=== PATIENT | female | born 2005 | race Caucasian/White ===

== ENCOUNTER 2025-07-02 10:48 | Outpatient (AMB) | payer BC, SELFPAY ==
[2025-07-02 11:11] VITALS: BP 128/80; PULSE 64; RESP 14; TEMP 36.4; O2SAT 98; BMI 23.8
--- NOTE | 2025-07-02 11:11 | OBCLNT_ITS ---
Vital Signs 07/02/25 11:11 Height 1.7 m Height Method Stated Weight 69.116 kg Weight Measurement Method Standing Scale BMI 23.8 BP 128/80 Blood Pressure Source Automatic Cuff Blood Pressure Location Left Upper Arm Position Sitting Respiration 14 Pulse 64 Pulse Source Monitor Temp 97.6 F Temp Source Oral Pulse Oximetry (%) 98 Oxygen Delivery Method Room Air Allergies/Home Meds Allergies & Medications Allergies No Known Allergies Allergy (Verified 07/02/25 11:12) Medication Reconciliation No Known Home Medications 07/02/25 [History Confirmed 07/02/25] Intake Visit Data Collection New Patient or Established: Established Patient (seen at [facility] within 3 years) Reason for Visit:: INITIAL CARE Seen by Clinical Staff ONLY (RN/MA): No Information Technology Security Manager Required: No Do You Feel Safe at Home: Yes Authorities Contacted: N/A PCP or OBGYN visit in last 3 months: Yes Hx Now: Yes Are you currently on any form of Control: No Last menstrual period: 04/19/25 Pain Present Currently: No Pain Scale Used: French-Stroud/Numerical Pain scale:: 0 Smoking Status Smoking Status: Never smoker Questionnaires Covid-19 Vaccine Questionnaire Has patient been vacinated for Covid-19 Have you been vacinated for Covid-19: No PHQ-9 PHQ-2 Over the last 2 weeks, how often have you been bothered by any of the following problems? 1. Little interest or pleasure in doing things: not at all 2. Feeling down, depressed, or hopeless: not at all Total score: 0 PHQ-9 3. Trouble falling or staying asleep, or sleeping too much: Not at all 4. Feeling tired or having little energy: Not at all 5. Poor appetite or overeating: Not at all 6. Feeling bad about yourself - or that you are a failure or have let yourself or your family down: Not at all 7. Trouble concentrating on things, such as reading the newspaper or watching television: Not at all 8. Moving or speaking so slowly that other people could have noticed? - Or the opposite - being so fidgety or restless that you have been moving around a lot more than usual: not at all 9. Thoughts that you would be better off or of hurting yourself in some way: Not at all Total score: 0 Source: Developed by Drs. Filiberto Betancourt, Codi Cruz, Barry Smith and colleagues, with an educational sangeetha from [employer]. Depression screen completed yes Social History Living Situation History Marital Status: Life Partner Lives With: Family Housing: House Tobacco History Smoking Status: Never smoker Second Hand Smoke Exposure: No Alcohol History Alcohol Intake: Never Domestic Abuse History Do You Feel Safe at Home: Yes History of Present Illness HPI Narrative Verónica Butler presents for care at 12 weeks and 6 days gestation. Her last menstrual period was on April 19, with an estimated due date of January 08, 2026. The patient reports experiencing morning nausea, which is being managed with Zofran. Her diabetes is currently controlled using an insulin pump. Verónica has already received some initial care at [facility], where a heartbeat check and limited blood panel were performed. Today's ultrasound confirms a normal heartbeat of 143 bpm, with measurements consistent with her gestational age of 12 weeks and 6 days. She is a 19-year-old female with an obstetric history of A0 L0. The patient has been taking insulin administered via insulin pump for diabetes. She is also taking Zofran for morning nausea. 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 OB Initial Visit OB Flowsheet OB Flowsheet Initial Weight: Not Recorded Date -?-?-?-?-?-?-?-?-?-?-?-?- EGA Weight BP Alb Glu CTX Pres Fundal ht FHR Mov Dilation Station Effacement Hx Notes Visit Note 07/02/25 -?-?-?-?-?-?-?-?-?-?-?-?- 12w 6d 69.116 kg 128/80 Verónica Butler presents for care at 12 weeks and 6 days gestation. Her last menstrual period was on April 19, with an estimated due date of January 08, 2026. The patient reports experiencing morning nausea, which is being managed with Zofran. Her diabetes is currently controlled using an insulin pump. Verónica has already received some initial care at [facility], where a heartbeat check and limited blood panel were performed. Plan: - Complete panel including A1c and genetic screening. - Patient to fast for 8 hours before blo od draw. - Follow-up in 4 weeks. - Schedule high-level ultrasound in [facility]. - Prescriptions will be sent to [facility] Menstrual History Menstrual reliability: definite Flow: normal Menstrual regularity: regular Monthly: Yes Age at menarche: 11 On control pills at conception: No Associated symptoms (LMP): Reports nausea, vomiting, fatigue, breast tenderness and bloating OB History : 1 # of Living Children: 0 Infection History & Risk Evaluation History of STDs: none Genetic Screening & History Genetic Screening/Teratology Counseling - Includes patient, baby's father, or anyone in either family with: 1. Patient's age 35 years or older as of estimated date of delivery: No 2. Thalassemia (Saudi Arabian, Senegalese, Mediterranean, or Background); MCV less than 80: No 3. Neural Tube Defect (Meningomyelocele, Spina Bifida, or Anencephaly): No 4. Congenital Heart Defect: No 5. Down Syndrome: No 6. Azeem-Sachs (Ashkenazi Jain, Cajun, Pashto Tunisian): No 7. Sandeep Disease (Ashkenazi Jain): No 8. Familial Dysautonomia (Ashkenazi Jain): No 9. Sickle Cell Disease or Trait (): No 10. Hemophilia or other blood disorders: No 11. Muscular Dystrophy: No 12. Cystic Fibrosis: No 13. Lety's Chorea: No 14. Mental Retardation/Autism: No 15. Other inherited genetic or chromosomal disorder: No 16. Maternal Metabolic Disorder (EG,TYPE 1 Diabetes, PKU): No 17. Patient or baby's father had a child with defects not listed above: No 18. Recurrent loss or a stillbirth: No 19. Medications (including supplements, vitamins, herbs or otc drugs)/illicit/recreational drugs/alcohol since last menstrual period: No 20. Any other: No Infection History 1. Live with someone with TB or exposed to TB: No 2. Rash or viral illness since last menstrual period: No 3. Hepatitis B,C: No Other (see comments) Source: [employer] Review of Systems Constitutional Constitutional: Reports fatigue Gastrointestinal Gastrointestinal: Reports bloating, Reports nausea and Reports vomiting Endocrine Endocrine: Reports fatigue Exam General Limitations: no limitations General Appearance: alert, in no apparent distress and comfortable Head Head exam: atraumatic and normocephalic Eye Eye exam: Present normal appearance, PERRL and EOMI Neck Neck exam: Present normal inspection and full ROM Chest Chest inspection: Present normal inspection and symmetric chest wall rise; Absent tenderness Resp Respiratory exam: Present normal lung sounds bilaterally; Absent respiratory distress Card Cardiovascular exam: Present regular rate and normal rhythm Abdominal Abdominal exam: Present soft and normal bowel sounds; Absent tenderness, guarding, rebound or rigidity Neuro Neurological exam: Present alert and oriented X3 Psych Psychiatric exam: Present normal affect Office Procedures OBC Clinic LOC & Office Proc's Nursing/Assessment Patient Status: Established Patient OB Clinic Nursing Assessment: Medication Reconciliation, Update PMH in EMR and Vital Signs OB Clinic Coordination of Care: Complex Care and Chronic Disease 1-5, Consent,records obtained, informed consent, Education Simp Pt/Fam, Lab and Imaging orders, Results/Orders obtained and Staff clarify orders Special Needs: Heart tones Established Patient Charge Established Patient Point Assignment: 135 Established Patient Point Charge: EP Level 4 (120-155) Assessment & Plan Diagnosis / Problem List (1) Supervision of high risk , unspecified, first trimester: Status: Acute (2) Uterine size date discrepancy: Status: Acute Plan Intrauterine : - 12 weeks and 6 days gestation based on last menstrual period of April 19 with estimated due date of January 08. - Today's ultrasound demonstrates normal heart rate of 143 bpm with measurements consistent with gestational age. - Previous limited blood panel shows blood group O positive, hepatitis C negative, hemoglobin 12.3, platelets 314, and negative urine culture. Plan: - Complete panel including A1c and genetic screening. - Patient to fast for 8 hours before blood draw. - Follow-up in 4 weeks. - Schedule high-level ultrasound in [place]. - Prescriptions will be [facility] to [facility] Diabetes mellitus: - Patient has diabetes managed with insulin pump. - Recent A1c is 6.8, indicating reasonable glycemic control during . Plan: - Repeat A1c as part of complete panel. Morning nausea: - Patient is experiencing morning nausea, which is common in first trimester of . Plan: - Continue Zofran for symptom management.
== END 2025-07-02 11:48 | disposition home or self-care (01) ==
LOC: HODSOBC 10:48
PROVIDERS: Supervising Provider Obstetrics & Gynecology; Visit Provider Obstetrics & Gynecology
DX: O09.891 Supervision of other high risk pregnancies, first trimester (principal); O26.841 Uterine size-date discrepancy, first trimester; Z3A.12 12 weeks gestation of pregnancy; O24.311 Unspecified pre-existing diabetes mellitus in pregnancy, first trimester; Z79.4 Long term (current) use of insulin; Z96.41 Presence of insulin pump (external) (internal)
CPT/HCPCS: 99214; G0463

== ENCOUNTER → 2025-07-04 | Outpatient (CLI) | payer BC, SELFPAY ==
--- NOTE | 2025-07-04 10:20 | XR_ITS ---
Examination: Complete OB ultrasound, less than 14 weeks, transabdominal Date and time of exam: July 04, 2025 1032 hours INDICATIONS: Size dates discrepancy, early by history Technique: Obstetrical ultrasound images less than 14 weeks performed via transabdominal imaging Findings: A normal shaped single intrauterine gestation is present in the uterus. CRL 6.7 cm corresponds to 13 weeks 0 day gestational age Ultrasonographic survey of visible and placental structures unremarkable. Amniotic fluid volume appears appropriate for this estimated gestational age. Right ovary 2.7 x 3.1 cm arterial flow Left ovary obscured by bowel gas IMPRESSION: Viable intrauterine gestation 13 weeks 0 days.
== END | disposition home or self-care (01) ==
PROVIDERS: Referring Provider Obstetrics & Gynecology; Visit Provider Obstetrics & Gynecology
DX: O26.849 Uterine size-date discrepancy, unspecified trimester (principal); Z3A.13 13 weeks gestation of pregnancy
CPT/HCPCS: 76801

== ENCOUNTER 2025-07-23 00:31 | Emergency (ER) | payer BC, SELFPAY ==
[2025-07-23 00:31] VITALS: BMI 24.3
[2025-07-23 00:43] VITALS: BP 120/70; PULSE 92; RESP 18; TEMP 37; O2SAT 99
--- NOTE | 2025-07-23 00:52 | EDNOTE_ITS ---
ED Ear RME/HPI General Chief complaint: Ear Stated complaint: BILAT EAR PAIN Time Seen by Provider: 07/23/25 00:49 Arrival date/time: 07/23/25 00:31 This is a case of 19-year-old female with no medical history came in in the emergency room due to bilateral ear pain today with clear discharge patient have nasal congestion but no cough no other symptoms patient is 16 weeks but no vaginal bleeding no abdominal pain no pelvic pain no nausea no vomiting no vaginal spotting no discharge 1 para 0 Limitations: no limitations Related Data Previous Rx's ?Medication ?Instructions ?Recorded amoxicillin 500 mg tablet 500 mg PO Q8H 10 days #30 ta bs 07/23/25 [id number] 3.3 1 applic otic (ear) QI D 7 days #10 07/23/25 mg-3 mg-10 mg-0.5 mg/mL ear mL drops,susp (Cortisporin-TC) Allergies Allergy/AdvReac Type Severity Reaction Status Date / Time No Known Allergies Allergy Verified 07/23/25 00:36 Review of Systems Review of Systems Systems Reviewed: All systems reviewed, normal except as documented Constitutional Constitutional: Reports system reviewed and no additional complaints, except as documented and Reports as per HPI ENT Ears, Nose, Mouth, and Throat: Reports system reviewed and no additional complaints, except as documented and Reports as per HPI Cardiovascular Cardiovascular: Reports system reviewed and no additional complaints, except as documented and Reports as per HPI Gastrointestinal Gastrointestinal: Reports system reviewed and no additional complaints, except as documented and Reports as per HPI Musculoskeletal Musculoskeletal: Reports system reviewed and no additional complaints, except as documented and Reports as per HPI Neurologic Neurologic: Reports system reviewed and no additional complaints, except as documented and Reports as per HPI Past Medical History Social History SMOKING STATUS: Never smoker SECOND HAND EXPOSURE: No ED Exam General Limitations: Present no limitations General appearance: Present alert, in no apparent distress and other (Patient is awake alert oriented not in distress nontoxic looking well-hydrated well- nourished) Head Head exam: Present atraumatic, normocephalic and normal inspection Eye Eye exam: Present normal appearance, PERRL and EOMI ENT ENT exam: Present normal exam, normal oropharynx, mucous membranes moist and other (Lateral ear canal red clear discharge no swelling but mild tenderness no mastoid tenderness bilaterally no earwax tympanic membrane red bulging retracted but not perforated the rest of the HEENT exam is normal) Neck Neck exam: Present normal inspection, full ROM and trachea midline; Absent tenderness, meningismus, lymphadenopathy or thyromegaly Chest Chest inspection: Present normal inspection and symmetric chest wall rise; Absent tenderness Respiratory Respiratory exam: Present normal lung sounds bilaterally; Absent respiratory distress, wheezes, stridor, accessory muscle use or prolonged expiratory phase Cardiovascular Cardiovascular exam: Present regular rate, normal rhythm and normal heart sounds; Absent bradycardia, tachycardia, irregular rhythm, systolic murmur or diastolic murmur Abdominal Exam Abdominal exam: Present soft and normal bowel sounds; Absent distention, tenderness, guarding, rebound, rigidity, diminished bowel sounds, hyperactive bowel sounds, hypoactive bowel sounds or organomegaly Extremities Exam Extremities exam: Present normal inspection and full ROM Back Exam Back exam: Present normal inspection and full ROM Neurological Exam Neurological exam: Present alert, oriented X3, CN II-XII intact, normal gait and reflexes normal; Absent motor sensory deficit Psychiatric Psychiatric exam: Present normal affect and normal mood Skin Skin exam: Present warm, dry, intact and normal color Course Quality Measures none Vital Signs Vital signs: Vital Signs Temperature 98.6 F 07/23/25 00:43 Pulse Rate 92 07/23/25 00:43 Respiratory Rate 18 07/23/25 00:43 Blood Pressure 120/70 07/23/25 00:43 Pulse Oximetry (%) 99 07/23/25 00:43 Oxygen Delivery Method Room Air 07/23/25 00:43 Oxygen saturation is 99% in room air Ear MDM Narrative MDM Narrative:: This is a case of 19-year-old female with no medical history came in in the emergency room due to bilateral ear pain today with clear discharge patient have nasal congestion but no cough no other symptoms patient is 16 weeks but no vaginal bleeding no abdominal pain no pelvic pain no nausea no vomiting no vaginal spotting no discharge 1 para 0 physical examination patient is awake alert oriented not in distress nontoxic looking well-hydrated well- nourished bilateral tympanic membrane noted red bulging retracted but not perforated bilateral ear canal with clear discharge mild tenderness red but no earwax no foreign body no mastoid tenderness bilaterally abdominal exam is normal based on my physical examination and history patient was treated as otitis media patient was given amoxicillin and Cortisporin which is safe for the baby persistence of the symptoms return precaution to the ER was advised worsening symptoms return to the ER is advised to follow-up with PCP in 2 days for reevaluation and follow-up with OB for checkup Patient was discharged with comfortable condition walking with stable gait. Patient verbalized no further complains explained diagnosis and answered patient question. Patient is comfortable with the proposed management plan including the need to follow up with his/her primary care physician and any specialist if applicable Discussed patient for any urgent condition or worsening sx, He/She needed to go to emergency room immediately or call 911. Patient acknowledge the responsibility to follow up as instructed and to monitor her/his symptoms. For any persistence of the symptoms for more than 3-5 days return precaution advised. Discussed the result of the test and was given printed discharge instruction Patient data External records reviewed:: [facility] previous records Clinical information provided by:: patient Social determinants that could affect healthcare access:: none Patient has the following chronic illnesses:: None How is presenting disease/condition affected by chronic disease/condition?: no chronic disease Evaluation data The following diagnostics were reviewed and interpreted by me:: other (specify) Lab and/or radiology exams considered but not ordered:: None Interpretation Summary: None Medications / Prescriptions Medications or Prescriptions considered but not ordered:: Given Medication administrations:: Given Consultations Consultation(s) initiated? (list below): No Diagnosis Ear Differential Diagnosis: otitis externa, ruptured TM and cerumen impaction Most likely diagnosis given after review of the tests above:: Otitis media Admission Indicated Admission indicated?: not indicated Explain why admission is indicated or not indicated:: Not indicated Admission Request Was there a request for admission?: No Admission Attestation Admission request attestation: Not indicated Disposition Plan Disposition Plan: Discharge Discharge Attestation Discharge Attestation: The patient and all family members were given an opportunity to ask questions and understood the discharge instructions. Discharge instructions specifically effects, indications for sooner follow up or return to the emergency department, and the expected course of current diagnosis. Patient condition: Stable Discharge Plan Plan Patient Disposition: HOME (Self Care) Patient condition on transfer: Stable Prescriptions/Referrals Prescriptions/Med Rec: New amoxicillin 500 mg tablet 500 mg PO Q8H 10 Days Qty: 30 0RF Cortisporin-TC 3.3-3-10-0.5 mg/mL drops,suspension 1 applic otic (ear) QID 7 Days Qty: 10 0RF Rx Instructions: apply to (cotton) wick; replace wick every 24 hours Problem List Clinical Impression: Otitis media, First trimester Patient/Caregiver Discharge Instructions Education Materials: Your First Trimester ..., ED Otitis Media Antibiotic ... Additional Instructions: Follow-up with your primary care physician in 2 days for reevaluation is very important to follow-up with your OB cutter in for your checkup for any worsening symptoms or any emergent concern return precaution in the ER is advised take your medication as directed finish the course of antibiotic no Q- tips no cotton balls prevent water to enter both ears is advised Print Language: Spanish Stand Alone Forms: Dulce Award Info., Patient Portal Info Letter PA/RELATIONS SPECIALIST Supervising Physician PA/RELATIONS SPECIALIST Supervising Physician: Dr. Linares
== END 2025-07-23 01:00 | disposition home or self-care (01) ==
LOC: SERX 00:56
PROVIDERS: Emergency Provider Emergency Medicine; PCP Nurse Practitioner Family
DX: O26.892 Other specified pregnancy related conditions, second trimester (principal); H66.93 Otitis media, unspecified, bilateral; Z3A.16 16 weeks gestation of pregnancy
CPT/HCPCS: 99281

== ENCOUNTER 2025-08-06 10:46 | Outpatient (AMB) | payer BC, SELFPAY ==
[2025-08-06 11:10] VITALS: BP 109/71; PULSE 78; RESP 18; TEMP 36.7; O2SAT 98; BMI 24.8
--- NOTE | 2025-08-06 11:10 | OBCLNT_ITS ---
Vital Signs 08/06/25 11:10 Height 1.7 m Height Method Stated Weight 71.781 kg Weight Measurement Method Standing Scale BMI 24.8 BP 109/71 Blood Pressure Source Automatic Cuff Blood Pressure Location Right Upper Arm Position Sitting Respiration 18 Pulse 78 Pulse Source Monitor Temp 98.0 F Temp Source Temporal Artery Scan Pulse Oximetry (%) 98 Oxygen Delivery Method Room Air Allergies/Home Meds Allergies & Medications Allergies No Known Allergies Allergy (Verified 08/06/25 11:12) Medication Reconciliation No Known Home Medications 08/06/25 [History Confirmed 08/06/25] Intake Visit Data Collection New Patient or Established: Established Patient (seen at [facility] within 3 years) Reason for Visit:: OBC Seen by Clinical Staff ONLY (RN/MA): No Dairy Laboratory Technician Required: No Do You Feel Safe at Home: Yes Authorities Contacted: N/A PCP or OBGYN visit in last 3 months: Yes Date of Last PCP or OBGYN visit: 07/23/25 Hx Now: Yes Are you currently on any form of Control: No Pain Present Currently: No Pain Scale Used: French-Stroud/Numerical Pain scale:: 0 Smoking Status Smoking Status: Never smoker Immunizations Flu Vaccine in the Last 12 Months: No Flu Vaccine Exclusion Criteria: No Exclusion Criteria Questionnaires Covid-19 Vaccine Questionnaire Has patient been vacinated for Covid-19 Have you been vacinated for Covid-19: No PHQ-9 PHQ-2 Over the last 2 weeks, how often have you been bothered by any of the following problems? 1. Little interest or pleasure in doing things: not at all 2. Feeling down, depressed, or hopeless: not at all Total score: 0 PHQ-9 3. Trouble falling or staying asleep, or sleeping too much: Not at all 4. Feeling tired or having little energy: Not at all 5. Poor appetite or overeating: Not at all 6. Feeling bad about yourself - or that you are a failure or have let yourself or your family down: Not at all 7. Trouble concentrating on things, such as reading the newspaper or watching television: Not at all 8. Moving or speaking so slowly that other people could have noticed? - Or the opposite - being so fidgety or restless that you have been moving around a lot more than usual: not at all 9. Thoughts that you would be better off or of hurting yourself in some way: Not at all Total score: 0 If you checked off any problems, how difficult have these problems made it for you to do your work, take care of things at home, or get along with other people?: not difficult at all Source: Developed by Drs. Filiberto Betancourt, Codi Cruz, Barry Smith and colleagues, with an educational sangeetha from [employer]. Depression screen completed yes Social History Living Situation History Marital Status: Single Lives With: Family Housing: House Tobacco History Smoking Status: Never smoker Second Hand Smoke Exposure: No Alcohol History Alcohol Intake: Never Domestic Abuse History Do You Feel Safe at Home: Yes Care OB Visit Log OB Flowsheet Initial Weight: Not Recorded Date -?-?-?-?-?-?-?-?-?-?-?-?- EGA Weight BP Alb Glu CTX Pres Fundal ht FHR Mov Dilation Station Effacement Hx Notes Visit Note 07/02/25 -?-?-?-?-?-?-?-?-?-?--?-?- 12w 6d 69.116 kg 128/80 Verónica Butler presents for care at 12 weeks and 6 days gestation. Her last menstrual period was on April 19, with an estimated due date of January 08, 2026. The patient reports experiencing morning nausea, which is being managed with Zofran. Her diabetes is currently controlled using an insulin pump. Verónica has already received some initial care at [facility], where a heartbeat check and limited blood panel were performed. Plan: - Complete panel including A1c and genetic screening. - Patient to fast for 8 hours before blo od draw. - Follow-up in 4 weeks. - Schedule high-level ultrasound in [facility]. - Prescriptions will be sent to [facility] 08/06/25 -?-?-?-?-?-?-?-?-?-?-?-?- 17w 6d 71.781 kg 109/71 155 - She reports experiencing hypoglycemic episodes, particularly at night with blood sugar levels dropping below 50. - She is currently taking about 10 units of insulin daily and has been managing low blood sugars by drinking sugary beverages and eating candy. - She reports difficulty with protein in take due to nausea and food aversion. - She continues to follow up with her di abetic doctor, Myah Yanes, every 2 weeks for diabetes management. - Cut down insulin by 2 units for couple of weeks due to hypoglycemic episodes - Adjust insulin if having low readings, sometimes hold it if not taking enough calories - Continue monitoring with diabetic doct or Myah Yanes every 2 weeks until sta ble - Try to eat protein or salad before car bs to slow down absorption and avoid spikes - Ultrasound referral sent to [place] - anatomy ultrasound and echo between 20-24 weeks with [id number] specialist - Follow up in 4 weeks - Gender results provided in sealed enve justa per patient request TIMOTEO Calculator Estimated Delivery Date Method Current WG Current Estimate 01/08/26 Ultrasound #1 18w 0d Notes Visit Date: 08/06/25 Last Updated by: Speedy Fletcher MD Laboratory, Imaging, and Diagnostic Test Results - Date: 07/25/2025 - Initial screen: - Hepatitis B: Negative - Hepatitis C: Negative - Rubella: Immune - Blood group: O-positive with negative antibody screen - HIV: Negative - Gonorrhea: Negative - Chlamydia: Negative - Hemoglobin: 12.6 g/dL - Platelet count: 298 - Urinalysis: 1+ glucose, epithelial cells present - NIPT testing: Negative for all tested syndromes, gender consistent with female - SMA (Spinal Muscular Atrophy): Negative - Cystic fibrosis: Negative Visit Date: 07/02/25 Last Updated by: Speedy Fletcher MD - Blood group: O positive - Hepatitis C: Negative - Hemoglobin: 12.3 g/dL - Platelets: 314 - A1c: 6.8% - Urine culture: Negative - Ultrasound: heart rate 143 bpm, gestational age measurements consistent with 12 weeks and 6 days Office Procedures OBC Clinic LOC & Office Proc's Nursing/Assessment Patient Status: Established Patient OB Clinic Nursing Assessment: Medication Reconciliation, Update PMH in EMR and Vital Signs OB Clinic Coordination of Care: Complex Care and Chronic Disease 1-5, Education Complex Pt/Fam, Consent,records obtained, informed consent, Results/Orders obtained and Staff clarify orders Special Needs: Heart tones Established Patient Charge Established Patient Point Assignment: 125 Established Patient Point Charge: EP Level 4 (120-155) Assessment & Plan Diagnosis / Problem List (1) Uterine size date discrepancy: Status: Acute (2) Type 1 diabetes mellitus affecting in first trimester, antepartum: Status: Acute Plan Problem List - - Type 1 Diabetes Mellitus - Hypoglycemia - Nausea Assessment 17-week 6-day 0 para 0 with diabetes mellitus experiencing recurrent nocturnal hypoglycemia with blood glucose readings below 50 mg/dL despite current insulin regimen of 10 units daily. Patient reports hypoglycemic episodes requiring treatment with sugary beverages and candy, with concurrent nausea limiting protein intake. heart rate is reassuring at 135 bpm. Initial screening results are normal including negative hepatitis B and C, rubella immunity, O-positive blood type with negative antibody screen, negative HIV, negative gonorrhea and chlamydia, hemoglobin 12.6 g/dL, and platelet count 298,000. NIPT testing negative for all tested syndromes with female gender confirmation. SMA and cystic fibrosis carrier screening negative. Urinalysis shows 1+ glucose and epithelial cells. Plan - Cut down insulin by 2 units for couple of weeks due to hypoglycemic episodes - Adjust insulin if having low readings, sometimes hold it if not taking enough calories - Continue monitoring with diabetic doctor Myah Yanes every 2 weeks until stable - Try to eat protein or salad before carbs to slow down absorption and avoid spikes - Ultrasound referral sent to [place] - anatomy ultrasound and echo between 20-24 weeks with [id number]-uibvabyy specialist - Follow up in 4 weeks - Gender results provided in sealed envelope per patient request
== END 2025-08-06 11:42 | disposition home or self-care (01) ==
LOC: HODSOBC 10:46
PROVIDERS: Supervising Provider Obstetrics & Gynecology; Visit Provider Obstetrics & Gynecology
DX: O09.892 Supervision of other high risk pregnancies, second trimester (principal); O26.842 Uterine size-date discrepancy, second trimester; O24.012 Pre-existing type 1 diabetes mellitus, in pregnancy, second trimester; E10.649 Type 1 diabetes mellitus with hypoglycemia without coma; O99.891 Other specified diseases and conditions complicating pregnancy; R11.0 Nausea; Z3A.17 17 weeks gestation of pregnancy; Z79.4 Long term (current) use of insulin
CPT/HCPCS: 99214; G0463

== ENCOUNTER 2025-09-03 08:25 | Outpatient (AMB) | payer BC, SELFPAY ==
[2025-09-03 08:43] VITALS: BP 118/78; PULSE 76; RESP 14; TEMP 36.6; O2SAT 97; BMI 26.2
--- NOTE | 2025-09-03 08:43 | AMB.OBPNC ---
Vital Signs 09/03/25 08:43 Height 1.7 m Height Method Stated Weight 75.807 kg Weight Measurement Method Standing Scale BMI 26.2 BP 118/78 Blood Pressure Source Automatic Cuff Blood Pressure Location Left Upper Arm Position Sitting Respiration 14 Pulse 76 Pulse Source Monitor Temp 97.8 F Temp Source Oral Pulse Oximetry (%) 97 Oxygen Delivery Method Room Air Allergies/Home Meds Allergies & Medications Allergies No Known Allergies Allergy (Verified 09/03/25 08:43) Medication Reconciliation No Known Home Medications 08/06/25 [History Confirmed 09/03/25] Immunizations Immunizations Flu Vaccine in the Last 12 Months: No Flu Vaccine Exclusion Criteria: Refused by Patient Care OB Visit Log OB Flowsheet Initial Weight: Not Recorded Date <del>?</del> EGA Weight BP Alb Glu CTX Pres Fundal ht FHR Mov Dilation Station Effacement Hx Notes Visit Note 07/02/25 <del>?</del> 12w 6d 69.116 kg 128/80 Verónica Butler presents for care at 12 weeks and 6 days gestation. Her last menstrual period was on April 19, with an estimated due date of January 08, 2026. The patient reports experiencing morning nausea, which is being managed with Zofran. Her diabetes is currently controlled using an insulin pump. Verónica has already received some initial care at [facility], where a heartbeat check and limited blood panel were performed. Plan: - Complete panel including A1c and genetic screening. - Patient to fast for 8 hours before blood draw. - Follow-up in 4 weeks. - Schedule high-level ultrasound in [place]. - Prescriptions will be sent to [facility] 08/06/25 <del>?</del> 17w 6d 71.781 kg 109/71 155 - She reports experiencing hypoglycemic episodes, particularly at night with blood sugar levels dropping below 50. - She is currently taking about 10 units of insulin daily and has been managing low blood sugars by drinking sugary beverages and eating candy. - She reports difficulty with protein intake due to nausea and food aversion. - She continues to follow up with her diabetic doctor, Myah Yanes, every 2 weeks for diabetes management. - Cut down insulin by 2 units for couple of weeks due to hypoglycemic episodes - Adjust insulin if having low readings, sometimes hold it if not taking enough calories - Continue monitoring with diabetic doctor Myah Yanes every 2 weeks until stable - Try to eat protein or salad before carbs to slow down absorption and avoid spikes - Ultrasound referral sent to [place] - anatomy ultrasound and echo between 20-24 weeks with [id number] specialist - Follow up in 4 weeks - Gender results provided in sealed envelope per patient request 09/03/25 <del>?</del> 21w 6d 75.807 kg 118/78 absent cephalic 21 145 active - Patient reports resolution of cramping and nausea. - Her glucose levels are within normal limits. - She has an insulin pump that is managed by her pasteurizing supervisor. - Patient had questions about exercise that were answered during the visit. - Patient to continue with insulin pump management by pasteurizing supervisor - [facility] ultrasound scheduled for anatomy scan and echo in upcoming weeks - Return for next appointment in 4 weeks TIMOTEO Calculator Estimated Delivery Date Method Current WG Current Estimate 01/08/26 Ultrasound #1 22w 5d Notes Visit Date: 08/06/25 Last Updated by: Speedy Fletcher MD Laboratory, Imaging, and Diagnostic Test Results - Date: 07/25/2025 - Initial screen: - Hepatitis B: Negative - Hepatitis C: Negative - Rubella: Immune - Blood group: O-positive with negative antibody screen - HIV: Negative - Gonorrhea: Negative - Chlamydia: Negative - Hemoglobin: 12.6 g/dL - Platelet count: 298 - Urinalysis: 1+ glucose, epithelial cells present - NIPT testing: Negative for all tested syndromes, gender consistent with female - SMA (Spinal Muscular Atrophy): Negative - Cystic fibrosis: Negative Visit Date: 07/02/25 Last Updated by: Speedy Fletcher MD - Blood group: O positive - Hepatitis C: Negative - Hemoglobin: 12.3 g/dL - Platelets: 314 - A1c: 6.8% - Urine culture: Negative - Ultrasound: heart rate 143 bpm, gestational age measurements consistent with 12 weeks and 6 days Office Procedures OBC Clinic LOC & Office Proc's Nursing/Assessment Patient Status: Established Patient OB Clinic Nursing Assessment: Medication Reconciliation, Update PMH in EMR and Vital Signs OB Clinic Coordination of Care: Complex Care and Chronic Disease 1-5, Consent,records obtained, informed consent, Education [place] Pt/Fam, 1 Ins Authorization, Lab and Imaging orders, Results/Orders obtained and Staff clarify orders Special Needs: Heart tones Established Patient Charge Established Patient Point Assignment: 150 Established Patient Point Charge: EP Level 4 (120-155) Assessment & Plan Diagnosis / Problem List (1) Type 1 diabetes mellitus affecting in first trimester, antepartum: Status: Acute (2) Supervision of high risk , unspecified, first trimester: Status: Acute (3) Uterine size date discrepancy: Status: Acute Plan Problem List - Type 1 Diabetes Mellitus - Nocturnal hypoglycemia - Assessment 21-week 6-day 1 para 0 patient with type 1 diabetes mellitus and history of nocturnal hypoglycemia presents with resolution of cramping and nausea. Current glucose levels are within normal limits with insulin pump management by endocrinology. Plan - Patient to continue with insulin pump management by pasteurizing supervisor - [facility] ultrasound scheduled for anatomy scan and echo in upcoming weeks - Return for next appointment in 4 weeks 1. Progress Reviewed gestational age, growth, and heart rate. Planned frequent visits (every 2 weeks until 36 weeks, then weekly). 2. Instructed patient to monitor movements and report decreases immediately. 3. Testing Counseled on routine third-trimester labs per guidelines. Discussed potential need for ultrasound or monitoring based on risk factors. 4. Preeclampsia Precaution Educated on preeclampsia signs: severe headache, vision changes, right upper quadrant pain, sudden swelling. Advised urgent reporting of symptoms and discussed blood pressure monitoring if high risk. 5. Labor Precautions Reviewed labor signs: regular contractions, pelvic pressure, back pain, bleeding, or fluid leakage. Instructed to seek immediate care for these symptoms. 6. Lifestyle and Delivery Preparation Reinforced vitamins, nutrition, and safe activity. Discussed plan, pain management, and . Advised on labor preparation (e.g., hospital bag) and expectations. 7. Psychosocial Support Assessed emotional well-being and offered resources for mental health or parenting support.
== END 2025-09-03 09:21 | disposition home or self-care (01) ==
LOC: HODSOBC 08:25
PROVIDERS: Supervising Provider Obstetrics & Gynecology; Visit Provider Obstetrics & Gynecology
DX: O09.892 Supervision of other high risk pregnancies, second trimester (principal); O26.842 Uterine size-date discrepancy, second trimester; O24.012 Pre-existing type 1 diabetes mellitus, in pregnancy, second trimester; E10.649 Type 1 diabetes mellitus with hypoglycemia without coma; Z3A.21 21 weeks gestation of pregnancy; Z96.41 Presence of insulin pump (external) (internal); Z79.4 Long term (current) use of insulin; Z28.21 Immunization not carried out because of patient refusal
CPT/HCPCS: 99214; G0463